=== PATIENT | male | born 1995 | race Caucasian/White ===

== ENCOUNTER 2020-01-02 07:46 | Emergency (ER) | payer BC, OTHER ==
[2020-01-02 18:10] LABS: SARS-CoV-2 MS2 Positive; SARS-CoV-2 N Gene Negative; SARS-CoV-2 S Gene Negative; SARS-CoV-2 by NAA Not Detected (NotDetected); SARS-CoV-2 orf1ab Negative
== END 2020-01-02 08:52 | disposition home or self-care (01) ==
LOC: ERS 07:46
DX: R51 Headache (principal); J02.9 Acute pharyngitis, unspecified; Z20.828 Contact with and (suspected) exposure to other viral communicable diseases; F41.9 Anxiety disorder, unspecified; F32.9 Major depressive disorder, single episode, unspecified
CPT/HCPCS: 87635; 99284; U0003

== ENCOUNTER 2020-06-24 19:12 | Emergency (ER) | payer BC | END 2020-06-24 21:50 | disposition home or self-care (01) | LOC: ERS 19:12 | DX: N48.89 Other specified disorders of penis (principal); Z87.891 Personal history of nicotine dependence | CPT/HCPCS: 99281 ==